=== PATIENT | female | born 1970 | race Caucasian/White ===

== ENCOUNTER 2018-06-15 21:52 | Emergency (ER) | payer MEDICAID ==
[2018-06-15] MEDS ORDERED: Ketorolac 60 MG/2 ML SDV IM ONE (23:14)
[2018-06-15] MEDS ORDERED: Acetaminophen/oxyCODONE 325-5 MG Tab PO STA (23:14)
--- NOTE | 2018-06-16 00:06 | EDM.PDOC ---
ED HPI GENERAL MEDICAL PROBLEM - General Chief Complaint: Back Pain or Injury Stated Complaint: BACK PAIN Time Seen by Provider: 06/15/18 21:52 Source of Information: Reports: Patient, Family History Limitations: Reports: Physical Impairment - History of Present Illness INITIAL COMMENTS - FREE TEXT/NARRATIVE: 48 y.o.w.f - smoker-with h/o low back pain cams to the ed due to acute exacerbation of her lower back pain physical activity. Pt denied a fall or any direct trauma to her back. She gave to 5 children. No N/V/D or any other acute medical issues. 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 lower back Pain Score (Numeric/FACES): 10 - Related Data Allergies Allergy/AdvReac Type Severity Reaction Status Date / Time No Known Allergies Allergy Verified 06/15/18 22:16 Home Meds: Home Meds Acetaminophen/oxyCODONE [Percocet 325-5 MG] 1 tab PO Q6HR PRN #16 tab 06/16/18 [ Rx] Orphenadrine [Norflex] 100 mg PO BID PRN #20 tab 06/16/18 [Rx] Ciprofloxacin HCl [Cipro] 500 mg PO BID #20 tablet 06/18/18 [Rx] Past Medical History - Past Health History Medical/Surgical History: Denies Medical/Surgical History Social & Family History - Family History Family Medical History: Noncontributory - Tobacco Use Smoking Status *Q: Current Every Day Smoker Years of Tobacco use: 32 Packs/Tins Daily: 0.5 - Caffeine Use Caffeine Use: Reports: Coffee - Recreational Drug Use Recreational Drug Use: No ED ROS GENERAL - Review of Systems Review Of Systems: See Below Constitutional: Reports: No Symptoms HEENT: Reports: No Symptoms Respiratory: Reports: No Symptoms Cardiovascular: Reports: No Symptoms Endocrine: Reports: No Symptoms GI/Abdominal: Reports: No Symptoms : Reports: No Symptoms Musculoskeletal: Reports: Back Pain Skin: Reports: No Symptoms Neurological: Reports: No Symptoms Psychiatric: Reports: No Symptoms Hematologic/Lymphatic: Reports: No Symptoms Immunologic: Reports: No Symptoms ED EXAM,LOWER BACK PAIN/INJURY - Physical Exam Exam: See Below Exam Limited By: Physical Impairment General Appearance: Alert, WD/WN, Mild Distress, Moderate Distress Eye Exam: Bilateral Eye: Normal Inspection Ears: Normal External Exam, Normal Canal Nose: Normal Inspection Throat/Mouth: Normal Inspection, Normal Lips, Normal Voice, No Airway Compromise Head: Atraumatic, Normocephalic Neck: Normal Inspection, Supple, Non-Tender, Full Range of Motion Respiratory/Chest: No Respiratory Distress, Lungs Clear, Normal Breath Sounds, Chest Non-Tender Cardiovascular: Normal Peripheral Pulses, Regular Rate, Rhythm, No Edema, No Gallop, No JVD, No Murmur GI/Abdominal: Normal Bowel Sounds, Soft, Non-Tender, No Organomegaly, Pelvis Stable (Female) Exam: Deferred Rectal (Female) Exam: Deferred Back Exam: Normal Inspection, Full Range of Motion Extremities: Normal Inspection, Normal Range of Motion, Non-Tender, No Pedal Edema Neurological: Alert, Normal Mood/Affect, Normal Dorsiflexion, CN II-XII Intact, Oriented x 3, Abnormal Gait (due to back pain) Psychiatric: Normal Affect, Normal Mood Course - Vital Signs Text/Narrative:: 48 y.o.w.f - smoker-with h/o low back pain cams to the ed due to acute exacerbation of her lower back pain physical activity. Pt denied a fall or any direct trauma to her back. She gave to 5 children. No N/V/D or any other acute medical issues. BP 139/79 Pulse ox 98% on RA RR 18 Pulse 102 Temp 36.6 PE: WNWD W F with abnormal gait due to low back pain Imaging: Anterolisthesis L4 on L5 Labs: UA results returned after pt left Impression: Low back pain, anterolisthesis (7mm), osteoarthrosis, UTI Tx: ICE, Norflex, Toradol percoxet, Cipro as a prescription sent to Pharmacist 06/18/2018 am Reexam: Improved Plan: D/C with instructions Last Recorded V/S: Last Vital Signs Temp 36.4 C 06/16/18 00:15 Pulse 100 06/16/18 00:15 Resp 18 06/16/18 00:15 BP 116/76 06/16/18 00:15 Pulse Ox 95 06/16/18 00:15 - Orders/Labs/Meds Labs: Laboratory Tests 06/15/18 Range/Units 22:05 Urine Color Yellow (YELLOW) Urine Appearance Cloudy (CLEAR) Urine pH 5.0 (5.0-6.5) Ur Specific [place] 1.020 (1.010-1.025) Urine Protein Negative (NEGATIVE) mg/dL Urine Glucose (UA) Normal (NEGATIVE) mg/dL Urine Ketones Negative (NEGATIVE) mg/dL Urine Occult Blood Negative (NEGATIVE) Urine Nitrite Positive H (NEGATIVE) Urine Bilirubin Negative (NEGATIVE) Urine Urobilinogen 1 H (NEGATIVE) mg/dL Ur Leukocyte Esterase Moderate H (NEGATIVE) Urine RBC 0-5 (0) Urine WBC 5-10 (0) Ur Squamous Epith Cells Few H (NS,R,O) Urine Bacteria Many H (NS) Meds: Medications Discontinued Medications Generic Name Dose Route Start Last Admin Trade Name Freq PRN Reason Stop Dose Admin Ketorolac Tromethamine 60 mg 06/15/18 23:14 06/15/18 23:18 Toradol IM 06/15/18 23:15 60 mg ONETIME ONE Administration Orphenadrine Citrate 60 mg 06/15/18 23:59 06/16/18 00:04 Norflex IM 06/16/18 00:00 60 mg ONETIME STA Administration Oxycodone/Acetaminophen 1 tab 06/15/18 23:14 06/15/18 23:18 Percocet 325-5 Mg PO 06/15/18 23:15 1 tab ONETIME STA Administration Departure - Departure Time of Disposition: 00:02 Disposition: Home, Self-Care 01 Condition: Good Clinical Impression: Low back pain - Discharge Information Prescriptions: Acetaminophen/oxyCODONE [Percocet 325-5 MG] 1 tab PO Q6HR PRN #16 tab PRN Reason: severe pain Ciprofloxacin HCl [Cipro] 500 mg PO BID #20 tablet Orphenadrine [Norflex] 100 mg PO BID PRN #20 tab PRN Reason: Spasms Instructions: Back Pain, Adult Referrals: PCP,None [Primary Care Provider] - Forms: ED Department Discharge Additional Instructions: Please apply ice to lower back, f/u, take the meds as recommended, please come back if your symptoms get worse acutely
== END 2018-06-16 00:15 | disposition home or self-care (01) ==
LOC: FB.ED 21:52
DX: M54.5 Low back pain (principal); N39.0 Urinary tract infection, site not specified; M19.90 Unspecified osteoarthritis, unspecified site; F17.210 Nicotine dependence, cigarettes, uncomplicated
CPT/HCPCS: 72100; 72170; 81001; 87086; 87088; 87186; 96372; 99283; A9270; J1885; J2360

== ENCOUNTER 2018-06-27 22:49 | Emergency (ER) | payer MEDICAID ==
[2018-06-27] MEDS ORDERED: Ibuprofen 800 MG Tab PO ONE (22:50)
[2018-06-27] MEDS ORDERED: Cyclobenzaprine 10 MG Tab PO ONE (22:50)
[2018-06-27] MEDS ORDERED: Ketorolac 60 MG/2 ML SDV IM ONE (23:21)
--- NOTE | 2018-06-27 23:24 | EDM.PDOC ---
ED HPI GENERAL MEDICAL PROBLEM - General Chief Complaint: Back Pain or Injury Stated Complaint: BACK PAIN Time Seen by Provider: 06/27/18 23:21 Source of Information: Reports: Patient History Limitations: Reports: No Limitations - History of Present Illness INITIAL COMMENTS - FREE TEXT/NARRATIVE: December complains that she has lower back pain. Moderate to severe,with radiation to both legs.Nothing helping. Was seen here about 2 weeks ago x-rays negative. Has no primary care physician. Fell about 2 weeks ago lower back Pain Score (Numeric/FACES): 10 - Related Data Allergies Allergy/AdvReac Type Severity Reaction Status Date / Time No Known Allergies Allergy Verified 06/28/18 00:42 Home Meds: Home Meds NK [No Known Home Meds] 06/28/18 [History] Past Medical History - Past Health History Medical/Surgical History: Denies Medical/Surgical History Social & Family History - Family History Family Medical History: Noncontributory - Tobacco Use Smoking Status *Q: Current Every Day Smoker Years of Tobacco use: 32 Packs/Tins Daily: 0.5 - Caffeine Use Caffeine Use: Reports: Coffee - Recreational Drug Use Recreational Drug Use: No ED ROS GENERAL - Review of Systems Review Of Systems: ROS reveals no pertinent complaints other than HPI. ED EXAM,LOWER BACK PAIN/INJURY - Physical Exam Exam: See Below Exam Limited By: No Limitations General Appearance: Alert Course - Vital Signs Last Recorded V/S: Last Vital Signs Temp 98 F 06/27/18 23:00 Pulse 108 H 06/27/18 23:00 Resp 20 06/27/18 23:00 BP 125/70 06/27/18 23:00 Pulse Ox 97 06/27/18 23:00 - Orders/Labs/Meds Meds: Medications Discontinued Medications Generic Name Dose Route Start Last Admin Trade Name Freq PRN Reason Stop Dose Admin Ketorolac Tromethamine 60 mg 06/27/18 23:21 06/27/18 23:24 Toradol IM 06/27/18 23:22 60 mg ONETIME ONE Administration Departure - Departure Time of Disposition: 23:23 Disposition: Home, Self-Care 01 Condition: Good Clinical Impression: Lower back pain Qualifiers: Chronicity: acute Sciatica presence: with sciatica - Discharge Information Instructions: Back Pain, Adult Referrals: PCP,None [Primary Care Provider] - Forms: ED Department Discharge Care Plan Goals: Ibuprofen 800 mg every 8 hours as needed for pain Cyclobenzaprine 1 tablet at bedtime as needed for pain Follow up with primary care - Problem List & Annotations (1) Low back pain SNOMED Code(s): 120531607 Code(s): M54.5 - LOW BACK PAIN Status: Acute Qualifiers: Chronicity: acute Sciatica presence: with sciatica - Problem List Review Problem List Initiated/Reviewed/Updated: Yes - Assessment/Plan Plan: Toradol 60 mg IM.MOtrin 800 mg po tid,Flexeril Establish PCP locally!
== END 2018-06-27 23:48 | disposition home or self-care (01) ==
LOC: FB.ED 22:49
DX: M54.41 Lumbago with sciatica, right side (principal); M54.42 Lumbago with sciatica, left side; F17.210 Nicotine dependence, cigarettes, uncomplicated
CPT/HCPCS: 96372; 99283; J1885; A9270-GY